=== PATIENT | female | born 1955 | race Caucasian/White ===

== ENCOUNTER 2017-01-04 19:46 | Emergency (ER) | payer MEDICARE ==
[~2017-01-04 19:46] MED LIST: ALPRAZOLAM0.5 MG PO; ASPIRIN81 MG PO; CITALOPRAM HBR40 MG PO; ELAVIL 25 MG TA25 MG PO; IMITREX100 MG PO; METOPROLOL TART50 MG PO; NEURONTIN 400400 MG PO; PLAVIX 75 MG TA75 MG PO; ZANAFLEX4 M1 PO
== END 2017-01-04 22:54 | disposition home or self-care (01) ==
LOC: ER1 19:46
DX: S00.83XA Contusion of other part of head, initial encounter (principal); S40.012A Contusion of left shoulder, initial encounter; S40.011A Contusion of right shoulder, initial encounter; S50.12XA Contusion of left forearm, initial encounter; F17.210 Nicotine dependence, cigarettes, uncomplicated; I10 Essential (primary) hypertension; Y04.2XXA Assault by strike against or bumped into by another person, initial encounter; Y92.009 Unspecified place in unspecified non-institutional (private) residence as the place of occurrence of the external cause
CPT/HCPCS: 70450; 70486; 99284